=== PATIENT | female | born 1965 | race Caucasian/White ===

== ENCOUNTER → 2019-04-18 13:13 | Outpatient (BNVA) | payer MEDICARE, SELFPAY | PROVIDERS: Family Provider Nurse Practitioner Family; PCP Nurse Practitioner Family; Visit Provider Internal Medicine Rheumatology | DX: M05.79 Rheumatoid arthritis with rheumatoid factor of multiple sites without organ or systems involvement (principal); Z79.899 Other long term (current) drug therapy; M79.7 Fibromyalgia; M81.0 Age-related osteoporosis without current pathological fracture; F32.9 Major depressive disorder, single episode, unspecified; Z79.52 Long term (current) use of systemic steroids | CPT/HCPCS: 36415; 82565; 84460; 85025; 85651; 86140; 99213 ==

== ENCOUNTER → 2019-04-18 14:23 | Outpatient (BNVA) | payer MEDICARE, SELFPAY | PROVIDERS: Family Provider Nurse Practitioner Family; PCP Nurse Practitioner Family; Visit Provider Internal Medicine Rheumatology | DX: M05.79 Rheumatoid arthritis with rheumatoid factor of multiple sites without organ or systems involvement (principal); F32.9 Major depressive disorder, single episode, unspecified; Z79.899 Other long term (current) drug therapy; M79.7 Fibromyalgia; M81.0 Age-related osteoporosis without current pathological fracture | CPT/HCPCS: 85025 ==

== ENCOUNTER → 2019-06-19 11:44 | Outpatient (BNVA) | payer MEDICARE, SELFPAY | PROVIDERS: Family Provider Nurse Practitioner Family; PCP Nurse Practitioner Family; Visit Provider Internal Medicine Rheumatology | DX: M05.79 Rheumatoid arthritis with rheumatoid factor of multiple sites without organ or systems involvement (principal); Z79.899 Other long term (current) drug therapy; Z11.1 Encounter for screening for respiratory tuberculosis | CPT/HCPCS: 36415; 80076; 82565; 85025; 85651; 86140; 86480 ==

== ENCOUNTER → 2019-06-19 12:11 | Outpatient (BNVA) | payer MEDICARE, SELFPAY | PROVIDERS: Family Provider Nurse Practitioner Family; PCP Nurse Practitioner Family; Visit Provider Internal Medicine Rheumatology | DX: M05.79 Rheumatoid arthritis with rheumatoid factor of multiple sites without organ or systems involvement (principal); Z79.899 Other long term (current) drug therapy | CPT/HCPCS: 85025 ==

== ENCOUNTER → 2019-12-24 11:42 | Outpatient (BNVA) | payer MEDICARE, SELFPAY | PROVIDERS: Family Provider Nurse Practitioner Family; PCP Nurse Practitioner Family; Visit Provider Internal Medicine Rheumatology | DX: M05.79 Rheumatoid arthritis with rheumatoid factor of multiple sites without organ or systems involvement (principal); Z79.899 Other long term (current) drug therapy; Z11.59 Encounter for screening for other viral diseases; M81.0 Age-related osteoporosis without current pathological fracture; M79.7 Fibromyalgia; I10 Essential (primary) hypertension; F17.210 Nicotine dependence, cigarettes, uncomplicated; Z79.52 Long term (current) use of systemic steroids | CPT/HCPCS: 36415; 80076; 82565; 85025; 85651; 86140; 86704; 99214 ==

== ENCOUNTER → 2020-01-03 15:07 | Outpatient (BNVA) | payer MEDICARE, SELFPAY | PROVIDERS: Family Provider Nurse Practitioner Family; PCP Nurse Practitioner Family; Visit Provider Internal Medicine Rheumatology | DX: M81.0 Age-related osteoporosis without current pathological fracture (principal); Z79.899 Other long term (current) drug therapy; M05.79 Rheumatoid arthritis with rheumatoid factor of multiple sites without organ or systems involvement | CPT/HCPCS: 82310 ==

== ENCOUNTER → 2020-04-02 15:46 | Outpatient (BNVA) | payer MEDICARE, SELFPAY | PROVIDERS: Family Provider Nurse Practitioner Family; PCP Family Medicine; Visit Provider Internal Medicine Rheumatology | DX: M05.79 Rheumatoid arthritis with rheumatoid factor of multiple sites without organ or systems involvement (principal); M81.0 Age-related osteoporosis without current pathological fracture; Z87.310 Personal history of (healed) osteoporosis fracture; Z79.899 Other long term (current) drug therapy; Z79.52 Long term (current) use of systemic steroids; M79.7 Fibromyalgia; I10 Essential (primary) hypertension; F17.210 Nicotine dependence, cigarettes, uncomplicated | CPT/HCPCS: 36415; 80076; 82565; 85025; 85651; 86140; 99214 ==

== ENCOUNTER → 2021-01-12 10:17 | Outpatient (BNVA) | payer MEDICARE, SELFPAY | PROVIDERS: Family Provider Nurse Practitioner Family; PCP Family Medicine; Visit Provider Internal Medicine Rheumatology | DX: M05.79 Rheumatoid arthritis with rheumatoid factor of multiple sites without organ or systems involvement (principal); M81.0 Age-related osteoporosis without current pathological fracture; Z87.310 Personal history of (healed) osteoporosis fracture; M25.562 Pain in left knee; M79.7 Fibromyalgia; Z79.899 Other long term (current) drug therapy; Z79.52 Long term (current) use of systemic steroids; I10 Essential (primary) hypertension; Z71.89 Other specified counseling; F17.200 Nicotine dependence, unspecified, uncomplicated | CPT/HCPCS: 20610; 80500; 87070; 87075; 87205; 89050; 99214 ==

== ENCOUNTER 2021-01-21 06:39 | Outpatient (CLI) | payer MEDICARE, SELFPAY ==
[2021-01-21 07:14] LABS: Basophils % 0.4 %; Eosinophils # 0.2 10^3/uL (0.0-0.8); Eosinophils % 1.7 %; Hematocrit 35.9 % (37.0-47.0); Lymphocytes # 2.7 10^3/uL (0.8-4.8); Lymphocytes % 25.3 %; Mean Corpuscular HGB Conc 30.6 g/dL (30.0-36.0); Mean Corpuscular Hemoglobin 28.1 pg (28.0-34.0); Mean Corpuscular Volume 91.6 fl (81-99); Mean Platelet Volume 9.5 fL (7.4-10.4); Monocytes # 0.8 10^3/uL (0.2-0.9); Monocytes % 7.3 %; Neutrophils # 6.77 10^3/uL (1.8-7.7); Neutrophils % 64.5 %; Nucleated Red Blood Cells % 0 %; Platelet Count 374 10^3/cmm (130-400); Red Blood Count 3.92 10^6/uL (4.1-5.3); Red Cell Distribution Width 13.8 % (12.1-15.1); White Blood Count 10.5 10^3/uL (4.0-10.0)
[2021-01-21 07:24] LABS: Alanine Aminotransferase 15 U/L (0-33); Albumin Level 3.7 g/dL (3.5-5.2); Alkaline Phosphatase 102 IU/L (35-105); Aspartate Amino Transferase 14 U/L (0-32); C Reactive Protein 5.6 mg/L (0.0-4.9); Calcium 8.6 mg/dL (8.5-10.5); Glomerular Filtration Rate 128.1 mL/min (90-130); Total Bilirubin 0.2 mg/dL (0.15-1.2); Total Protein 6.7 g/dL (6.6-8.7)
[2021-01-21 07:40] LABS: 25 Hydroxy Vitamin D 23 ng/mL (30-100)
== END 2021-01-21 06:40 | disposition home or self-care (01) ==
LOC: LAB 06:47
PROVIDERS: PCP Family Medicine; Visit Provider Internal Medicine Rheumatology
DX: M81.0 Age-related osteoporosis without current pathological fracture (principal); Z79.899 Other long term (current) drug therapy; M05.79 Rheumatoid arthritis with rheumatoid factor of multiple sites without organ or systems involvement
CPT/HCPCS: 80076; 82306; 82310; 82565; 85025; 86140

== ENCOUNTER → 2021-02-02 14:30 | Outpatient (BNVA) | payer MEDICARE, SELFPAY | PROVIDERS: PCP Family Medicine; Visit Provider Nurse Practitioner Family | DX: I10 Essential (primary) hypertension (principal) | CPT/HCPCS: 81000 ==

== ENCOUNTER → 2021-07-09 14:45 | Outpatient (BNVA) | payer MEDICARE, SELFPAY | PROVIDERS: PCP Family Medicine; Visit Provider Internal Medicine Rheumatology | DX: M05.79 Rheumatoid arthritis with rheumatoid factor of multiple sites without organ or systems involvement (principal); M79.7 Fibromyalgia; M81.0 Age-related osteoporosis without current pathological fracture; I10 Essential (primary) hypertension; Z79.899 Other long term (current) drug therapy; Z79.52 Long term (current) use of systemic steroids; Z71.89 Other specified counseling; F17.200 Nicotine dependence, unspecified, uncomplicated | CPT/HCPCS: 99214 ==

== ENCOUNTER → 2021-08-25 14:39 | Outpatient (BNVA) | payer MEDICARE, SELFPAY | PROVIDERS: PCP Family Medicine; Visit Provider Nurse Practitioner Family | DX: M79.642 Pain in left hand (principal); S61.412A Laceration without foreign body of left hand, initial encounter; M25.532 Pain in left wrist; X58.XXXA Exposure to other specified factors, initial encounter | CPT/HCPCS: 73110; 73130 ==

== ENCOUNTER → 2021-08-26 13:08 | Outpatient (BNVA) | payer MEDICARE, SELFPAY | PROVIDERS: PCP Family Medicine; Visit Provider Nurse Practitioner Family | DX: R19.7 Diarrhea, unspecified (principal); K92.1 Melena; M79.642 Pain in left hand; S61.412A Laceration without foreign body of left hand, initial encounter; K52.9 Noninfective gastroenteritis and colitis, unspecified; I10 Essential (primary) hypertension; L08.9 Local infection of the skin and subcutaneous tissue, unspecified; Z12.11 Encounter for screening for malignant neoplasm of colon; M25.532 Pain in left wrist | CPT/HCPCS: 80053 ==

== ENCOUNTER → 2021-09-15 10:52 | Outpatient (BNVA) | payer MEDICARE, SELFPAY | PROVIDERS: PCP Family Medicine; Visit Provider Surgery | DX: R19.7 Diarrhea, unspecified (principal); R10.9 Unspecified abdominal pain; K21.9 Gastro-esophageal reflux disease without esophagitis | CPT/HCPCS: 99203 ==

== ENCOUNTER → 2021-09-25 09:05 | Outpatient (BNVA) | payer MEDICARE, SELFPAY | PROVIDERS: PCP Family Medicine; Visit Provider Nurse Practitioner Family | DX: R19.7 Diarrhea, unspecified (principal); R10.9 Unspecified abdominal pain; K21.9 Gastro-esophageal reflux disease without esophagitis; R53.83 Other fatigue; J02.9 Acute pharyngitis, unspecified; W57.XXXA Bitten or stung by nonvenomous insect and other nonvenomous arthropods, initial encounter; R55 Syncope and collapse; R00.2 Palpitations; R94.31 Abnormal electrocardiogram [ECG] [EKG]; M79.7 Fibromyalgia; R11.0 Nausea; M05.79 Rheumatoid arthritis with rheumatoid factor of multiple sites without organ or systems involvement | CPT/HCPCS: 80053; 86618; 86666; 86757 ==

== ENCOUNTER 2021-10-02 08:57 | Day surgery (SDC) | payer MEDICARE, SELFPAY ==
[2021-10-01 10:35] VITALS: BMI 19.6
[2021-10-02] MEDS: sodium chloride 0.9% 1,000 ML 30 ML IV (09:15)
[2021-10-02 09:16] VITALS: BP 160/85; PULSE 78; RESP 18; TEMP 36.8; O2SAT 100
--- NOTE | 2021-10-02 09:36 | ANES.PREANE2 ---
Pre-Anesthetic Assessment Height/Weight: Height 1.65 m Weight 53.524 kg Temp Pulse Resp BP Pulse Ox 98.3 F 78 18 160/85 100 10/02/21 09:16 10/02/21 09:16 10/02/21 09:16 10/02/21 09:16 10/02/21 09:16 Preop Diagnosis: none Operation Date: 10/02/21 10:30 Proposed Procedures p EGD and colonoscopy [id number],R19.7,R10.9,K21.9(Not Applicable) - Marc Estrella DO s Colonoscopy(Not Applicable) - Marc Esterlla DO Familial anesthetic complications: none Was Beta Tate taken within 24 hours: N/A Was Clonidine taken within 24 hours: N/A Last intake: Intake Last Liquid Date 10/01/21 Last Liquid Time 23:45 Last Solid Date 09/30/21 Last Solid Time 20:00 Social Tobacco and No alcohol Exam alert, oriented x 3, clear to auscultation bilaterally and regular rate & rhythm Airway Submandibular: within normal limits Cervical ROM: Other (Limited ROM) Mallampati: Class II Comments: Comments: Poor dentition Missing some teeth CV/HEM Atrial Fibrillation (per patient new dx of afib ), Anemia, Arrythmia (Palpitations ) and Hypertension Near syncope Tick bite GI Gastroesophageal Reflux Disease K 2.9 Metabolic None reported Musc/skel Rheumatoid Arthritis Neuropsych None reported Anesthetic Plan ASA status: 2 Anesthesia: Anesthesia Evaluation and MAC Other: I discussed with the patient risks, goals, and benefits of MAC and general anesthesia. We discussed spectrum of MAC anesthesia including conversion to general as well as possibility of recall of intraoperative stimuli including discomfort/pain. Patient agrees to proceed with MAC. Risk of > 500 ml blood loss (7ml/kg in children): No Medications/Allergies Home Medications Medication Instructions Recorded Confirmed Last Taken Type Acomadative orthotics, bilateral #1 ea 08/15/19 10/02/21 10/01/21 Rx Metatarsal pads, bilateral feet #1 ea 08/15/19 10/02/21 10/01/21 Rx diclofenac sodium 1 % topical gel 2 gm TOPICAL QID #100 gm 12/24/19 10/02/21 10/01/21 Rx folic acid 1 mg tablet 1 mg PO DAILY #90 tab 01/12/21 10/02/21 10/01/21 Rx methotrexate sodium 2.5 mg tablet See Rx Instructions PO .week #40 06/08/21 10/02/21 10/01/21 Rx tab duloxetine 30 mg capsule,delayed 30 mg PO DAILY #90 cap 07/09/21 10/02/21 10/01/21 Rx release duloxetine 60 mg capsule,delayed 60 mg PO DAILY #90 cap 07/09/21 10/02/21 10/01/21 Rx release pantoprazole 40 mg tablet,delayed 40 mg PO DAILY #90 tab 07/09/21 10/02/21 10/01/21 Rx release prednisone 5 mg tablet 5 mg PO DAILY #90 tab 07/09/21 10/02/21 10/01/21 Rx upadacitinib 15 mg tablet,extended 15 mg PO DAILY #30 tab 07/09/21 10/02/21 10/01/21 Rx release 24 hr (Rinvoq) amlodipine 10 mg tablet 10 mg PO DAILY 90 Days #90 tab 08/25/21 10/02/21 10/01/21 Rx telmisartan 80 mg tablet (Micardis) 80 mg PO DAILY 90 Days #90 tab 08/25/21 10/02/21 10/01/21 Rx doxycycline hyclate 100 mg capsule 100 mg PO BID 10 Days #20 cap 09/24/21 10/02/21 10/01/21 Rx lidocaine HCl 2 % mucosal solution 1 applic MUCOUS MEMBRANE QID PRN 09/24/21 10/02/21 10/01/21 Rx (Lidocaine Viscous) #100 ml ondansetron HCl 4 mg tablet 4 mg PO Q6H PRN #90 tab 09/24/21 10/02/21 10/01/21 Rx sucralfate 1 gram tablet (Carafate) 1 g PO BID 30 Days #60 tab 09/24/21 10/02/21 10/01/21 Rx Allergies Allergy/AdvReac Type Severity Reaction Status Date / Time No Known Allergies Allergy Verified 09/24/21 14:41 Current Medications Generic Name Dose Route Start Last Admin Trade Name Freq PRN Reason Stop Dose Admin Sodium Chloride 1,000 mls @ 30 mls/hr 10/02/21 09:00 10/02/21 09:15 Sodium Chloride 0.9% IV 10/03/21 08:59 30 mls/hr .Q24H JASS Administration PFSH Anesthesia Medical History FHx: total knee replacement 08/2011 High risk medication use HTN (hypertension) Immunization counseling Surgical History H/O wrist surgery RIGHT H/O: hysterectomy 2006 History of back surgery 12/2017 Social History Smoking and tobacco status: never smoked Alcohol intake: never Lives independently: Yes Marital status: Single Current occupational status: retired and disabled History of recent travel: No Data Anesthesia Cardiac Studies: No Data to Display
--- NOTE | 2021-10-02 11:08 | W.PM.OPSUD ---
Surgery/Procedure H&P Update DATE OF PROCEDURE: October 02, 2021 DATE H&P PERFORMED: 09/15/21 CHANGES TO PREVIOUS DOCUMENTATION: none PREOP DIAGNOSIS: none PLANNED PROCEDURE: Operation Date: 10/02/21 10:30 Proposed Procedures p EGD and colonoscopy [id number],R19.7,R10.9,K21.9(Not Applicable) - DO olimpia Brody Colonoscopy(Not Applicable) - Marc Estrella DO
[2021-10-02 11:32] VITALS: BP 138/74; PULSE 68; RESP 18; TEMP 36.3; O2SAT 100
[2021-10-02 11:53] VITALS: BP 133/75; PULSE 72; RESP 18; O2SAT 98
--- NOTE | 2021-10-02 14:41 | ANE.PACU2 ---
Inpatient post-anesthesia follow up: Airway intact: Yes Vital signs: Temperature 97.3 F Pulse Rate 72 Respiratory Rate 18 Blood Pressure 133/75 Pulse Oximetry 98 Oxygen Delivery Me thod Room Air Oxygen Flow Rate 4 Fraction of Inspir ed Oxygen Hydration adequate: Yes Nausea and vomiting: No Pain level: 1 Mental status: Baseline
== END 2021-10-02 12:10 | disposition home or self-care (01) ==
PROVIDERS: PCP Family Medicine; Visit Provider Surgery
PROC: 0DJ08ZZ Inspection of Upper Intestinal Tract, Via Natural or Artificial Opening Endoscopic (ICD-10-PCS; CPT 43235; principal; 2021-10-02 10:30)
PROC: 0DJD8ZZ Inspection of Lower Intestinal Tract, Via Natural or Artificial Opening Endoscopic (ICD-10-PCS; CPT 45330; 2021-10-02 10:30)
DX: R19.7 Diarrhea, unspecified (principal); R10.9 Unspecified abdominal pain; K21.9 Gastro-esophageal reflux disease without esophagitis; I48.91 Unspecified atrial fibrillation; I10 Essential (primary) hypertension; M06.9 Rheumatoid arthritis, unspecified
CPT/HCPCS: 43235; 45330; J2704; J7030

== ENCOUNTER 2021-10-09 17:03 | Emergency (ER) | payer MEDICARE, SELFPAY ==
[2021-10-09] VITALS (7 sets, daily range): BP systolic 146–162; BP diastolic 71–94; PULSE 63–86; RESP 14–20; TEMP 36.7–36.8; O2SAT 96–100; BMI 19.6
--- NOTE | 2021-10-09 19:45 | ED_ITS ---
HPI - General Adult General: Chief complaint: General Medical Stated complaint: abnormal labs Time Seen by Provider: 10/09/21 19:25 Source: patient Mode of arrival: ambulatory Limitations: no limitations History of Present Illness: 56-year-old female who states that she been having some chronic anemia for months states she is having black tarry stool 3 to 4 weeks ago states she just had an EGD and colonoscopy on Tuesday they did not find any bleeding ulcers. She states that she had her hemoglobin rechecked today and it was below 7 and her PCP wanted her to get a transfusion states she been having some abdominal pain as well she has not had any more blood in her stools her stools been brown. Associated symptoms: Deny chest pain, dyspnea, headache(s) or rash Review of Systems Const: Denies: fever(s), chills, body aches or change in appetite Eyes: Denies: blurry vision or eye discomfort ENMT: Denies: throat pain or dental pain Card: Denies: chest pain Resp: Denies: dyspnea GI: Reports: abdominal pain and melena : Denies: dysuria Musc: Denies: neck pain or back pain Skin/Breast: Denies: rash Neuro: Denies: headache(s) Psych: Denies: depression Michele/Lymph: Denies: easy bruising All/Imm: Denies: urticaria PFSH ED PFSH: Medical History (Updated 10/09/21 @ 20:43 by Thalia Mckee MD) FHx: total knee replacement 08/2011 High risk medication use HTN (hypertension) Immunization counseling Surgical History H/O wrist surgery RIGHT H/O: hysterectomy 2006 History of back surgery 12/2017 Social History Smoking and tobacco status: current some day smoker Alcohol intake: never Lives independently: Yes Marital status: Single Current occupational status: retired and disabled History of recent travel: No Physical Exam Const: COMMON NORMALS: no acute distress, patient oriented x3 and healthy appearing HENMT: COMMON NORMALS: normocephalic and atraumatic HEAD & SCALP: normocephalic and atraumatic Eye: COMMON NORMALS: Equal, round and reactive pupils present and EOMs intact bilaterally PUPIL: Yes Equal, round and reactive pupils present Neck/C-Spine: COMMON NORMALS: full ROM and supple Chest: COMMONS NORMALS: normal inspection of the chest and normal palpation of entire chest wall Resp: COMMON NORMALS: normal respiratory effort, No retractions, No use of accessory muscles and clear to auscultation bilaterally AUSCULTATION: clear to auscultation bilaterally Cardio: COMMON NORMALS: regular rate, regular rhythm and No murmurs present (Cardio) RATE: regular rate RHYTHM: regular rhythm GI: COMMON NORMALS: Normal to inspection, nondistended, normoactive bowel sounds present, Soft to palpation, non-tender and no masses PALPATION: Yes Soft to palpation RECTAL EXAM: stool normal and No heme positive stool Extremity: COMMON NORMALS: normal to inspection and full ROM Neuro: COMMON NORMALS: patient oriented x3, moves all extremities and no focal motor deficits Psych: COMMON NORMALS: mental status grossly normal, Normal thought process present and cooperative THOUGHT PROCESS: Normal thought process present Skin: COMMON NORMALS: no rashes or lesions noted and no wounds GENERAL SKIN EXAM: no rashes or lesions noted Course Vital Signs: Vital signs: Vital Signs Temperature 98.1 F 10/09/21 21:23 Pulse Rate 73 10/09/21 21:23 Respiratory Rate 17 10/09/21 21:23 Blood Pressure 150/85 10/09/21 21:23 Pulse Oximetry 97 10/09/21 21:23 [facility] - General Adult Medical Decision Making Patient presents here with anemia was sent here patient is given a transfusion here she is likely became anemic over some time her vital signs here are normal she had dark stools weeks ago has had a normal EGD her rectal exam here today is normal CT abdomen is normal she stable for discharge is to follow back up with Dr. Estrella and return if worsening. Lab Data : 10/09/21 19:32 10/09/21 19:32 Radiology Impressions Abdomen/Pelvis CT 10/09/21 19:48 IMPRESSION: 1. Fluid within the small bowel without evidence of bowel wall thickening. This may reflect viral gastroenteritis in the appropriate clinical situation. 2. Scattered diverticula in the sigmoid colon. No evidence for diverticulitis. 3. Incidental/nonacute findings are listed in the report. Laboratory Results WBC 10.3 10^3/uL (4.0-10.0) H 10/09/21 19:32 RBC 3.28 10^6/uL (4.1-5.3) L 10/09/21: Hgb 6.9 g/dL (11.5-15.3) L 10/09/21: Hct 25.0 % (37.0-47.0) L 10/09/21: MCV 76.2 fl (81-99) L 10/09/21: MCH 21.0 pg (28.0-34.0) L 10/09/21: MCHC 27.6 g/dL (30.0-36.0) L 10/09/21: RDW 18.0 % (12.1-15.1) H 10/09/21: Plt Count 340 10^3/cmm (130-400) 10/09/21: MPV 9.8 fL (7.4-10.4) 10/09/21: Neut % (Auto) 54.9 % 10/09/21: Lymph % (Auto) 34.9 % 10/09/21: Rich % (Auto) 6.8 % 10/09/21: Eos % (Auto) 2.5 % 10/09/21: Baso % (Auto) 0.5 % 10/09/21: Neut # (Auto) 5.66 10^3/uL (1.8-7.7) 10/09/21: Lymph # (Auto) 3.6 10^3/uL (0.8-4.8) 10/09/21: Rich # (Auto) 0.7 10^3/uL (0.2-0.9) 10/09/21: Eos # (Auto) 0.3 10^3/uL (0.0-0.8) 10/09/21: Baso # (Auto) 0.1 10^3/uL (0.0-0.1) 10/09/21: Nucleated RBC % (auto) 0 % 10/09/21: Nucleated RBCs # 0.0 /100WBC 10/09/21: Sodium 137 mmol/L (136-145) 07/22/22 19:32 Potassium 3.0 mmol/L (3.5-5.1) L 10/09/21 19:32 Chloride 101 mmol/L (98-107) 10/09/21 19:32 Carbon Dioxide 24 mmol/L (22-29) 10/09/21 19:32 Anion Gap 15.0 (5-19) 10/09/21 19:32 BUN 26 mg/dL (6-20) H 10/09/21 19:32 Creatinine 0.7 mg/dL (0.5-0.9) 10/09/21 19:32 GFR Calculation 86.6 mL/min (90-130) L 10/09/21 19:32 Glucose 94 mg/dL (65-115) 10/09/21 19:32 Calculated Osmolality 289 mOsm/kg (285-295) 10/09/21 19:32 Calcium 8.7 mg/dL (8.5-10.5) 10/09/21 19:32 Total Bilirubin 0.2 mg/dL (0.15-1.2) 10/09/21 19:32 AST 12 U/L (0-32) 10/09/21 19:32 ALT 12 U/L (0-33) 10/09/21 19:32 Alkaline Phosphatase 91 IU/L (35-105) 10/09/21 19:32 Total Protein 6.8 g/dL (6.6-8.7) 10/09/21 19:32 Albumin 3.7 g/dL (3.5-5.2) 10/09/21 19:32 Globulin 3.1 g/dL (1.3-4.6) 10/09/21 19:32 Blood Type O Positive 10/09/21 19:32 Rho(D) Type Positive 10/09/21 19:32 Antibody Screen Negative 10/09/21 19:32 Crossmatch See Detail 10/09/21 19:32 Discharge Plan Discharge Patient Disposition: Home Clinical Impression: Anemia Condition: Stable Prescriptions: No Action diclofenac sodium 1 % gel 2 gm TOPICAL QID Qty: 100 2RF Rx Instructions: apply to affected area as needed (DME) Metatarsal pads, bilateral feet See Rx Instructions .Route .MEDSUPPLY Qty: 1 0RF Rx Instructions: As directed (DME) Acomadative orthotics, bilateral See Rx Instructions .Route .MEDSUPPLY Qty: 1 0RF Rx Instructions: As directed lidocaine (PF) 10 mg/mL (1 %) solution 10 mg SUBCUT ONCE Qty: 10 0RF folic acid 1 mg tablet 1 mg PO DAILY Qty: 90 3RF duloxetine 30 mg capsule,delayed release(DR/EC) 30 mg PO DAILY Qty: 90 1RF Rx Instructions: a 30mg and 60mg to be taken daily to equal 90mg daily duloxetine 60 mg capsule,delayed release(DR/EC) 60 mg PO DAILY Qty: 90 1RF Rx Instructions: a 30mg and 60mg to be taken daily to equal 90mg daily pantoprazole 40 mg tablet,delayed release (DR/EC) 40 mg PO DAILY Qty: 90 1RF prednisone 5 mg tablet 5 mg PO DAILY Qty: 90 1RF Rinvoq 15 mg tablet extended release 24 hr 15 mg PO DAILY Qty: 30 3RF amlodipine 10 mg tablet 10 mg PO DAILY 90 Days Qty: 90 1RF telmisartan [Micardis] 80 mg tablet 80 mg PO DAILY 90 Days Qty: 90 1RF doxycycline hyclate 100 mg capsule 100 mg PO BID 10 Days Qty: 20 0RF sucralfate [Carafate] 1 gram tablet 1 g PO BID 30 Days Qty: 60 0RF lidocaine HCl [Lidocaine Viscous] 2 % solution 1 applic mucous membrane QID PRN (Reason: pain) Qty: 100 0RF ondansetron HCl 4 mg tablet 4 mg PO Q6H PRN (Reason: nausea and vomiting) Qty: 90 0RF ferrous sulfate [Iron (ferrous sulfate)] 325 mg (65 mg iron) tablet 325 mg PO BID 90 Days Qty: 180 1RF Geritol Complete 16 mg iron- 0.38 mg tablet 1 tab PO .QD 90 Days Qty: 90 1RF methotrexate sodium 2.5 mg tablet See Rx Instructions PO .week Qty: 40 4RF Rx Instructions: 8 tabs of 2.5 mg PO once a week ( take 4 tabs in the AM and 4 tabs in the PM on the same day) Discharge Orders: Discharge ED (Routine); Ordered 10/09/21 Ordered By: Thalia Mckee Referrals: Janice Gunderson MD [Primary Care Provider] - 1-3 days Discharge Diet: Advance as tolerated Discharge Activity: Resume usual activity Patient Instructions: Anemia (ED) Coding Level of Care Code ED Supervisor [facility] for Chg Fwd Exam Comprehensive
[2021-10-09 19:46] LABS: Basophils # 0.1 10^3/uL (0.0-0.1); Basophils % 0.5 %; Eosinophils # 0.3 10^3/uL (0.0-0.8); Eosinophils % 2.5 %; Hemoglobin 6.9 g/dL (11.5-15.3); Lymphocytes # 3.6 10^3/uL (0.8-4.8); Lymphocytes % 34.9 %; Mean Corpuscular HGB Conc 27.6 g/dL (30.0-36.0); Mean Corpuscular Volume 76.2 fl (81-99); Mean Platelet Volume 9.8 fL (7.4-10.4); Monocytes # 0.7 10^3/uL (0.2-0.9); Monocytes % 6.8 %; Neutrophils # 5.66 10^3/uL (1.8-7.7); Neutrophils % 54.9 %; Nucleated Red Blood Cells % 0 %; Platelet Count 340 10^3/cmm (130-400); Red Blood Count 3.28 10^6/uL (4.1-5.3); White Blood Count 10.3 10^3/uL (4.0-10.0)
--- NOTE | 2021-10-09 19:48 | CTR_ITS ---
PROCEDURE INFORMATION: Exam: CT Abdomen And Pelvis Without Contrast Exam date and time: 10/09/2021 8:01 PM Age: 56 years old Clinical indication: Abdominal pain; Generalized; Patient HX: C/O diffuse abd pain with tarry stools. Low h&h per pcp. TECHNIQUE: Imaging protocol: Computed tomography of the abdomen and pelvis without contrast. Sagittal and coronal reformatted images were created and reviewed. Radiation optimization: All CT scans at this facility use at least one of these dose optimization techniques: automated exposure control; mA and/or kV adjustment per patient size (includes targeted exams where dose is matched to clinical indication); or iterative reconstruction. COMPARISON: US gall bladder [id number] 09/29/2017 9:01 AM RADIATION DOSE METRICS: Total DLP (mGy-cm): 797.48 FINDINGS: Limitations: Evaluation of solid organs and vasculature is limited without intravenous contrast. Lungs: Visualized lungs are clear. Pleural spaces: No pleural effusion. Heart: Visualized portions of the heart are mildly enlarged. Mild atherosclerotic calcification in the visualized coronary arteries. Liver: The liver is unremarkable. Gallbladder and bile ducts: The gallbladder is unremarkable. No biliary ductal dilatation. Pancreas: The pancreas is unremarkable. No pancreatic ductal dilatation. Spleen: Multiple calcified granulomas in the spleen. Adrenal glands: The right and left adrenal glands are unremarkable. Kidneys and ureters: The right and left kidneys are unremarkable. The right and left ureters are unremarkable. Stomach and bowel: Scattered diverticula in the sigmoid colon. No evidence for diverticulitis. Fluid within the small bowel without evidence of bowel wall thickening. Appendix: The appendix is visualized and is unremarkable. No findings to suggest acute appendicitis. Intraperitoneal space: No free intraperitoneal air. No ascites. No loculated fluid collections to suggest an abscess. Vasculature: Mild atherosclerotic changes in the visualized arteries. No evidence for aortic aneurysm. Lymph nodes: No lymphadenopathy. Urinary bladder: The bladder is unremarkable. Reproductive: Patient has had a previous hysterectomy. The ovaries are not definitely visualized, not an expected in a postmenopausal female. This may be due to ovarian atrophy. Alternatively, the patient may have had a previous bilateral oophorectomy. Bones/joints: Bones are diffusely osteopenic. Old, compression deformities varying severity at T9, T11, and all lumbar spine levels. Prior kyphoplasty procedures at T9 and L1. Mild spinal canal stenosis at all visualized spinal levels. Multilevel foraminal stenosis of varying severity in the visualized spine. Soft tissues: No acute abnormality in the extra-abdominal soft tissues. CT/CT abdomen pelvis wo con [id number] IMPRESSION: 1. Fluid within the small bowel without evidence of bowel wall thickening. This may reflect viral gastroenteritis in the appropriate clinical situation. 2. Scattered diverticula in the sigmoid colon. No evidence for diverticulitis. 3. Incidental/nonacute findings are listed in the report.
[2021-10-09] MEDS: morphine 4 mg/mL SDV 1 mL IVP (20:11)
[2021-10-09] MEDS: ondansetron 2 mg/ML SDV 2 mL 4 MG IVP (20:11)
[2021-10-09 20:14] LABS: Alanine Aminotransferase 12 U/L (0-33); Albumin Level 3.7 g/dL (3.5-5.2); Alkaline Phosphatase 91 IU/L (35-105); Aspartate Amino Transferase 12 U/L (0-32); Blood Urea Nitrogen 26 mg/dL (6-20); Calcium 8.7 mg/dL (8.5-10.5); Carbon Dioxide 24 mmol/L (22-29); Chloride 101 mmol/L (98-107); Globulin 3.1 g/dL (1.3-4.6); Glomerular Filtration Rate 86.6 mL/min (90-130); Glucose 94 mg/dL (65-115); Osmolality Calculated 289 mOsm/kg (285-295); Sodium 137 mmol/L (136-145); Total Bilirubin 0.2 mg/dL (0.15-1.2); Total Protein 6.8 g/dL (6.6-8.7)
== END 2021-10-09 23:15 | disposition home or self-care (01) ==
PROVIDERS: Emergency Provider Emergency Medicine; PCP Family Medicine
DX: D64.9 Anemia, unspecified (principal); I10 Essential (primary) hypertension; F17.210 Nicotine dependence, cigarettes, uncomplicated
CPT/HCPCS: 36415; 36430; 74176; 80053; 80074; 83550; 85025; 86850; 86900; 86920; 96374; 96375; 99285; J2270; J2405; P9016

== ENCOUNTER → 2021-11-30 14:40 | Outpatient (BNVA) | payer MEDICARE, SELFPAY | PROVIDERS: PCP Nurse Practitioner Family; Visit Provider Internal Medicine Cardiovascular Disease | DX: R00.2 Palpitations (principal); R94.31 Abnormal electrocardiogram [ECG] [EKG]; R06.02 Shortness of breath; R55 Syncope and collapse; I10 Essential (primary) hypertension; K21.9 Gastro-esophageal reflux disease without esophagitis; F17.200 Nicotine dependence, unspecified, uncomplicated | CPT/HCPCS: 80048; 83735; 85025; 99204 ==

== ENCOUNTER 2021-12-18 05:49 | Emergency (ER) | payer MEDICARE, SELFPAY ==
--- NOTE | 2021-12-18 05:56 | ECG_ITS ---
[facility] Test Date: 2021-12-18 Pat Name: Navid Solano Department: Room: Gender: Female [employer]pper [employer]ters: : 1965 Requested By: Fitz Veloz Order Number: [id number] Marcy MD: Mandy Castanon M.D. Measurements Intervals [place] Rate: 87 P: 25 NV: 121 QRS: 26 QRSD: 83 T: 18 QT: 358 QTc: 433 Interpretive Statements Possible SINUS RHYTHM Compared to ECG 03/07/2019 05:38:16 No significant changes Electronically Signed On 12-18-2021 19:06:32 CDT by Mandy Castanon M.D. [email or web address]
--- NOTE | 2021-12-18 05:57 | XRR_ITS ---
PROCEDURE INFORMATION: Exam: XR Chest Exam date and time: 12/18/2021 6:13 AM Age: 56 years old Clinical indication: Injury or trauma; Fall; Blunt trauma (contusions or hematomas); Additional info: Chest pain TECHNIQUE: Imaging protocol: Radiologic exam of the chest. Views: 1 view. COMPARISON: CT Chest w IV contrast* [id number] 03/07/2019 6:46 AM FINDINGS: Lungs: Mild elevation of the left hemidiaphragm. Focal opacity noted in the right upper lobe which may represent developing infiltrate. No consolidation. Pleural spaces: Unremarkable. No pleural effusion. No pneumothorax. Heart/Mediastinum: No cardiomegaly. Bones/joints: No acute fracture. XR/XR chest 1V portable [id number] IMPRESSION: Focal opacity noted in the right upper lobe which may represent developing infiltrate. Follow-up to resolution.
--- NOTE | 2021-12-18 05:58 | W.ED.CHESTPA ---
HPI - Chest Pain General: Chief Complaint: Chest Pain Stated Complaint: CP Time Seen by Provider: 12/18/21 05:51 Source: patient Mode of arrival: ambulatory History of Present Illness: 56-year-old female presents emergency room complaining of chest pain x1 day. Approximately 24 hours ago she was trying to close a heavy gate for a pasture she lifted it and felt a popping painful sensation in her chest that is continued to be painful since then. Patient has a history of coronary artery disease and was having intermittent episodes of chest pain prior to this as well. She is seen cardiology for it and is being managed there. She also mentions that she recently had an episode anemia anemia and required blood transfusion but there was no definitive finding on the source of blood loss. EGD and colonoscopy done earlier this year after the episode anemia or negative. Also noted reviewing her chart she had some hypokalemia in the past as well. Prior to this episode yesterday morning she was feeling relatively fine at her normal baseline health. Chest pain she is experiencing now is completely different from what she had been intermittently having prior. MD complaint: chest pain Pertinent past history: coronary artery disease Onset (ago): hour(s) Timing of current episode: episodic Onset: during exertion Pain location: other (Lower sternum) Pain radiation: none Severity: moderate Quality: sharp Relieving factors: rest Exacerbating factors: nothing Associated symptoms: Deny abdominal pain, diaphoresis, dyspnea, fever(s), leg edema, nausea, palpitations, sense of impending doom, syncope or vomiting Treatment prior to arrival: none Review of Systems Const: Denies: fever(s), chills, fatigue, malaise or diaphoresis ENMT: Denies: throat pain, ear or mastoid pain, nasal discharge or nasal congestion Card: Reports: chest pain; Denies: palpitations or syncope Resp: Denies: dyspnea, productive cough, non-productive cough or wheezing GI: Denies: abdominal pain, nausea or vomiting : Denies: flank pain, difficulty voiding, dysuria, urinary frequency or urinary urgency Musc: Denies: neck pain or back pain Skin/Breast: Denies: rash or pruritus PFS ED PFSH: Medical History FHx: total knee replacement 08/2011 High risk medication use History of COVID-19 HTN (hypertension) Immunization counseling Surgical History H/O wrist surgery RIGHT H/O: hysterectomy 2006 History of back surgery 12/2017 Social History Smoking and tobacco status: current every day smoker cigarettes Packs smoked per day: 0.5 Years cigarettes smoked: 36 Alcohol intake: never Lives independently: Yes Marital status: Single Current occupational status: retired and disabled History of recent travel: No Physical Exam Const: COMMON NORMALS: no acute distress GENERAL APPEARANCE: cooperative and comfortable ORIENTATION/CONSCIOUSNESS: Yes awake, Yes oriented to person, Yes oriented to place and Yes oriented to time HENMT: COMMON NORMALS: normocephalic, atraumatic and hearing grossly normal bilaterally HEAD & SCALP: normocephalic and atraumatic Resp: COMMON NORMALS: normal respiratory effort, No retractions and No use of accessory muscles AUSCULTATION: wheezes and diminished lung sounds Cardio: COMMON NORMALS: regular rate, regular rhythm and No murmurs present (Cardio) RATE: regular rate RHYTHM: regular rhythm GI: COMMON NORMALS: Soft to palpation and No hepatosplenomegaly present AUSCULTATION: Yes normoactive bowel sounds PALPATION: Yes Soft to palpation, No Tenderness to palpation present (GI), No Guarding due to palpation present (GI) and Yes No hepatosplenomegaly present Extremity: COMMON NORMALS: normal to inspection, capillary refill normal, no clubbing, cyanosis or edema, no calf tenderness and no pedal edema Neuro: SENSORIUM/ORIENTATION: Yes oriented to person, Yes oriented to place and Yes oriented to time Skin: COMMON NORMALS: no rashes or lesions noted GENERAL SKIN EXAM: no rashes or lesions noted Course Vital Signs: Vital signs: Vital Signs Temperature 98.9 F 12/18/21 06:03 Pulse Rate 91 12/18/21 06:44 Respiratory Rate 16 12/18/21 06:44 Blood Pressure 155/86 12/18/21 06:44 Pulse Oximetry 92 12/18/21 06:44 Oxygen Delivery Me thod 12/18/21 06:44 MDM - Chest Pain Medical Decision Making Labs imaging and EKG reviewed. Pain reproducible with palpation on the anterior chest wall. Discharge patient home with Ultram steroid burst and taper. Follow-up with primary care as needed Lab Data : 12/18/21 06:01 12/18/21 06:01 Laboratory Results WBC 18.8 10^3/uL (4.0-10.0) H 12/18/21 06:01 RBC 4.60 10^6/uL (4.1-5.3) 12/18/21 06:01 Hgb 12.6 g/dL (11.5-15.3) 12/18/21 06:01 Hct 41.2 % (37.0-47.0) 12/18/21 06:01 MCV 89.6 fl (81-99) 12/18/21 06:01 MCH 27.4 pg (28.0-34.0) L 12/18/21 06:01 MCHC 30.6 g/dL (30.0-36.0) 12/18/21 06:01 RDW 19.1 % (12.1-15.1) H 12/18/21 06:01 Plt Count 311 10^3/cmm (130-400) 12/18/21 06:01 MPV 9.5 fL (7.4-10.4) 12/18/21 06:01 Neut % (Auto) 80.0 % 12/18/21 06:01 Lymph % (Auto) 12.7 % 12/18/21 06:01 Hart % (Auto) 6.0 % 12/18/21 06:01 Eos % (Auto) 0.7 % 12/18/21 06:01 Baso % (Auto) 0.3 % 12/18/21 06:01 Neut # (Auto) 15.01 10^3/uL (1.8-7.7) H 12/18/21 06:01 Lymph # (Auto) 2.4 10^3/uL (0.8-4.8) 12/18/21 06:01 Hart # (Auto) 1.1 10^3/uL (0.2-0.9) H 12/18/21 06:01 Eos # (Auto) 0.1 10^3/uL (0.0-0.8) 12/18/21 06:01 Baso # (Auto) 0.1 10^3/uL (0.0-0.1) 12/18/21 06:01 Nucleated RBC % (auto) 0 % 12/18/21 06:01 Nucleated RBCs # 0.0 /100WBC 12/18/21 06:01 Sodium 136 mmol/L (136-145) 12/18/21 06:01 Potassium 3.4 mmol/L (3.5-5.1) L 12/18/21 06:01 Chloride 100 mmol/L (98-107) 12/18/21 06:01 Carbon Dioxide 28 mmol/L (22-29) 12/18/21 06:01 Anion Gap 11.4 (5-19) 12/18/21 06:01 BUN 15 mg/dL (6-20) 12/18/21 06:01 Creatinine 0.6 mg/dL (0.5-0.9) 12/18/21 06:01 GFR Calculation 103.4 mL/min (90-130) 12/18/21 06:01 Glucose 116 mg/dL (65-115) H 12/18/21 06:01 Calculated Osmolality 284 mOsm/kg (285-295) L 12/18/21 06:01 Calcium 9.0 mg/dL (8.5-10.5) 12/18/21 06:01 Total Bilirubin 0.4 mg/dL (0.15-1.2) 12/18/21 06:01 AST 13 U/L (0-32) 12/18/21 06:01 ALT 15 U/L (0-33) 12/18/21 06:01 Alkaline Phosphatase 86 U/L (35-105) 12/18/21 06:01 Troponin T Baseline 9 ng/L (0-10) 12/18/21 06:01 Total Protein 6.7 g/dL (6.6-8.7) 12/18/21 06:01 Albumin 3.7 g/dL (3.5-5.2) 12/18/21 06:01 Globulin 3.0 g/dL (1.3-4.6) 12/18/21 06:01 Discharge Plan Discharge Patient Disposition: Home Clinical Impression: Anterior chest wall pain Condition: Stable Prescriptions: New prednisone 20 mg tablet 20 mg PO TID Qty: 15 0RF Rx Instructions: 1 p.o. 3 times daily x3 days, 1 p.o. twice daily x2 days, 1 p.o. daily x2 days tramadol 50 mg tablet 50 mg PO Q6H PRN (Reason: pain) Qty: 14 0RF Held prednisone 5 mg tablet 5 mg PO DAILY Qty: 90 1RF Hold Instructions: Resume on 12/25/21. Take steroid burst and taper your gait given today in the emergency room when that is complete resume your regular 5 mg/day No Action lidocaine (PF) 10 mg/mL (1 %) solution 10 mg SUBCUT ONCE Qty: 10 0RF folic acid 1 mg tablet 1 mg PO DAILY Qty: 90 3RF Enbrel 25 mg/0.5 mL solution SUBCUT carvedilol 3.125 mg tablet 3.125 mg PO BID Qty: 60 6RF Rx Instructions: must administer with a meal/food potassium chloride 20 mEq tablet extended release 20 meq PO DAILY Qty: 90 3RF Rx Instructions: Take 40mEq (2 tabs) first 2 days then take 20mEq (1 tab) daily duloxetine 30 mg capsule,delayed release(DR/EC) 30 mg PO DAILY Qty: 90 1RF Rx Instructions: a 30mg and 60mg to be taken daily to equal 90mg daily duloxetine 60 mg capsule,delayed release(DR/EC) 60 mg PO DAILY Qty: 90 1RF Rx Instructions: a 30mg and 60mg to be taken daily to equal 90mg daily pantoprazole 40 mg tablet,delayed release (DR/EC) 40 mg PO DAILY Qty: 90 1RF amlodipine 10 mg tablet 10 mg PO DAILY 90 Days Qty: 90 1RF telmisartan [Micardis] 80 mg tablet 80 mg PO DAILY 90 Days Qty: 90 1RF ondansetron HCl 4 mg tablet 4 mg PO Q6H PRN (Reason: nausea and vomiting) Qty: 90 0RF ferrous sulfate [Iron (ferrous sulfate)] 325 mg (65 mg iron) tablet 325 mg PO BID 90 Days Qty: 180 1RF Geritol Complete 16 mg iron- 0.38 mg tablet 1 tab PO .QD 90 Days Qty: 90 1RF methotrexate sodium 2.5 mg tablet See Rx Instructions PO .week Qty: 40 4RF Rx Instructions: 8 tabs of 2.5 mg PO once a week ( take 4 tabs in the AM and 4 tabs in the PM on the same day) ibuprofen 800 mg tablet See Rx Instructions .ROUTE .COMPLEX Qty: 60 1RF Dose Instruction: TAKE 1 TABLET BY MOUTH EVERY 8 HOURS NEEDED FOR PAIN Rx Instructions: TAKE 1 TABLET BY MOUTH EVERY 8 HOURS NEEDED FOR PAIN Discharge Orders: Discharge ED (Routine); Ordered 12/18/21 Ordered By: Fitz Chaves Referrals: Diamante Juarez NP [Primary Care Provider] - Patient Instructions: Opioid Safety, Pain Management Activity Restrictions/Additional Instructions: Tramadol and prednisone for pain. After the prednisone burst and taper is completed resume your usual 5 mg/day prednisone. Follow-up with your primary care doctor if not improving Coding Level of Care Code ED Physician Practice Manager for Chg Fwd Exam Detailed
[2021-12-18 05:59] VITALS: BP 181/95; PULSE 88; RESP 20; O2SAT 93; BMI 18.7
[2021-12-18 06:03] VITALS: TEMP 37.2
[2021-12-18 06:07] LABS: Basophils # 0.1 10^3/uL (0.0-0.1); Basophils % 0.3 %; Eosinophils # 0.1 10^3/uL (0.0-0.8); Eosinophils % 0.7 %; Hematocrit 41.2 % (37.0-47.0); Hemoglobin 12.6 g/dL (11.5-15.3); Lymphocytes # 2.4 10^3/uL (0.8-4.8); Lymphocytes % 12.7 %; Mean Corpuscular HGB Conc 30.6 g/dL (30.0-36.0); Mean Corpuscular Hemoglobin 27.4 pg (28.0-34.0); Mean Corpuscular Volume 89.6 fl (81-99); Mean Platelet Volume 9.5 fL (7.4-10.4); Monocytes # 1.1 10^3/uL (0.2-0.9); Neutrophils # 15.01 10^3/uL (1.8-7.7); Nucleated Red Blood Cells % 0 %; Platelet Count 311 10^3/cmm (130-400); Red Cell Distribution Width 19.1 % (12.1-15.1); White Blood Count 18.8 10^3/uL (4.0-10.0)
[2021-12-18] MEDS: aspirin 81 mg Chew Tablet 324 MG PO (06:07)
[2021-12-18] MEDS: ketorolac 30 mg/mL INJ IVP (06:25)
[2021-12-18 06:26] VITALS: RESP 16
[2021-12-18] MEDS: morphine 4 mg/mL SDV 1 mL IVP (06:26)
[2021-12-18 06:28] LABS: Alanine Aminotransferase 15 U/L (0-33); Albumin Level 3.7 g/dL (3.5-5.2); Alkaline Phosphatase 86 U/L (35-105); Anion Gap 11.4 (5-19); Aspartate Amino Transferase 13 U/L (0-32); Blood Urea Nitrogen 15 mg/dL (6-20); Carbon Dioxide 28 mmol/L (22-29); Chloride 100 mmol/L (98-107); Glomerular Filtration Rate 103.4 mL/min (90-130); Glucose 116 mg/dL (65-115); Osmolality Calculated 284 mOsm/kg (285-295); Potassium 3.4 mmol/L (3.5-5.1); Sodium 136 mmol/L (136-145); Total Bilirubin 0.4 mg/dL (0.15-1.2); Total Protein 6.7 g/dL (6.6-8.7)
[2021-12-18 06:29] LABS: Troponin(5th) Baseline 9 ng/L (0-10)
[2021-12-18 06:44] VITALS: BP 155/86; PULSE 91; RESP 16; O2SAT 92
[2021-12-18 07:51] LABS: Troponin 5 2HR 10.27 ng/L (0-10)
[2021-12-18 07:55] LABS: Troponin 5 2HR Delta 1.27 ABS# (0-10)
== END 2021-12-18 07:31 | disposition home or self-care (01) ==
PROVIDERS: Emergency Provider Family Medicine; PCP Nurse Practitioner Family
DX: R07.89 Other chest pain (principal); I10 Essential (primary) hypertension; F17.210 Nicotine dependence, cigarettes, uncomplicated
CPT/HCPCS: 36415; 71045; 80053; 84484; 85025; 93005; 96374; 96375; 99285; J1885; J2270

== ENCOUNTER → 2021-12-28 09:18 | Outpatient (BNVA) | payer MEDICARE, SELFPAY | PROVIDERS: PCP Nurse Practitioner Family; Visit Provider Nurse Practitioner Family | DX: J06.9 Acute upper respiratory infection, unspecified (principal); R07.89 Other chest pain | CPT/HCPCS: 71046; 80053 ==

== ENCOUNTER 2022-01-11 08:34 | Emergency (ER) | payer MEDICARE, SELFPAY ==
[2022-01-11] VITALS (34 sets, daily range): BP systolic 165–213; BP diastolic 88–127; PULSE 74–113; RESP 18–27; TEMP 36.4; O2SAT 97–100
--- NOTE | 2022-01-11 08:37 | XR_ITS ---
WS: [id number] Exam: XR chest 1V portable [id number] Date/Time of Exam: 01/11/2022 8:43 AM Reason For Exam: chest pain Comparison 12/28/2021. The lungs are clear and fully expanded. Chronic elevation left diaphragm. Normal cardiomediastinal si lhouette. Parenchymal scarring in the upper lobe of the right lung. Signs of previous kyphoplasty inv olving several upper thoracic vertebra as well as a single upper lumbar vertebra. Bony structures are intact. Thoracolumbar scoliosis. XR/XR chest 1V portable [id number] IMPRESSION: 1. No acute cardiopulmonary finding.
--- NOTE | 2022-01-11 08:48 | ECG_ITS ---
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 Measurements Intervals [place] Rate: 110 P: 39 [place]: 137 QRS: 1 QRSD: 74 T: 2 QT: 292 QTc: 396 Interpretive Statements SINUS TACHYCARDIA POSSIBLE LEFT ATRIAL ENLARGEMENT [-0.1mV P-WAVE IN V1/V2] LOW QRS VOLTAGE IN PRECORDIAL LEADS [QRS DEFLECTION < 1.0 mV IN CHEST LEADS] POSSIBLE ANTERIOR MYOCARDIAL INFARCTION , PROBABLY OLD [30 ms Q WAVE IN V3/V4, OR R < 0.2 mV IN V4] ABNORMAL RHYTHM ECG Compared to ECG 12/18/2021 05:56:29 Low QRS voltage now present Myocardial infarct finding now present Electronically Signed On 01-11-2022 22:55:03 CDT by Amber Gautam M.D. [id number]
[2022-01-11 08:56] LABS: Basophils % 0.3 %; Eosinophils % 0.4 %; Hematocrit 38.8 % (37.0-47.0); Hemoglobin 12.2 g/dL (11.5-15.3); Lymphocytes # 2.2 10^3/uL (0.8-4.8); Lymphocytes % 21.6 %; Mean Corpuscular HGB Conc 31.4 g/dL (30.0-36.0); Mean Corpuscular Volume 89.2 fl (81-99); Mean Platelet Volume 9.5 fL (7.4-10.4); Monocytes # 0.5 10^3/uL (0.2-0.9); Monocytes % 4.7 %; Neutrophils # 7.52 10^3/uL (1.8-7.7); Neutrophils % 72.5 %; Nucleated Red Blood Cells % 0 %; Platelet Count 352 10^3/cmm (130-400); Red Blood Count 4.35 10^6/uL (4.1-5.3); White Blood Count 10.4 10^3/uL (4.0-10.0)
[2022-01-11] MEDS: aspirin 81 mg Chew Tablet 324 MG PO (09:03)
[2022-01-11 09:15] LABS: Alanine Aminotransferase 10 U/L (0-33); Albumin Level 3.7 g/dL (3.5-5.2); Alkaline Phosphatase 112 U/L (35-105); Anion Gap 16.3 (5-19); Aspartate Amino Transferase 11 U/L (0-32); Blood Urea Nitrogen 26 mg/dL (6-20); Calcium 9.5 mg/dL (8.5-10.5); Carbon Dioxide 23 mmol/L (22-29); Chloride 104 mmol/L (98-107); Globulin 3.2 g/dL (1.3-4.6); Glomerular Filtration Rate 103.4 mL/min (90-130); Glucose 209 mg/dL (65-115); Osmolality Calculated 301 mOsm/kg (285-295); Potassium 3.3 mmol/L (3.5-5.1); Sodium 140 mmol/L (136-145); Total Bilirubin 0.2 mg/dL (0.15-1.2); Total Protein 6.9 g/dL (6.6-8.7)
[2022-01-11 09:23] LABS: Troponin(5th) Baseline 6 ng/L (0-10)
--- NOTE | 2022-01-11 09:36 | ED_ITS ---
HPI - Chest Pain General: Chief Complaint: Chest Pain Stated Complaint: Chest Pain Time Seen by Provider: 01/11/22 08:37 Source: patient Mode of arrival: ambulatory History of Present Illness: 56-year-old female who presents to the emergency room with complaint of midsternal chest pain radiates into her arm. She has a history of hypertension she has been seeing Dr. Whitley for chest pain as well she is put on no blood pressure medications a couple weeks ago. We did seen her about 3-1/2 weeks ago at that time she reported some chest pain after trying to close a fence chest x-ray initially was negative repeat chest x-ray her primary care they identified a mildly displaced sternum fracture. She denies any fever sweats or chills she has not had a productive cough. She has recently been on some antibiotics for presumed pneumonia as well. MD complaint: chest pain Onset (ago): week(s) Timing of current episode: episodic Prior episodes: Yes Onset: during rest Pain location: left chest Pain radiation: left arm Severity: moderate Quality: sharp Relieving factors: nothing Associated symptoms: Deny abdominal pain, diaphoresis, dyspnea, fever(s), leg edema, nausea, palpitations, sense of impending doom or vomiting Treatment prior to arrival: none Review of Systems Const: Denies: fever(s), chills or diaphoresis ENMT: Denies: throat pain, ear or mastoid pain, nasal discharge or nasal c ongestion Card: Reports: chest pain; Denies: palpitations, irregular heart rhythm or edema Resp: Denies: dyspnea GI: Denies: abdominal pain, nausea or vomiting : Denies: flank pain, difficulty voiding, dysuria, urinary frequency or urinary urgency Skin/Breast: Denies: rash or pruritus [facility] ED PFSH: Medical History FHx: total knee replacement 08/2011 High risk medication use History of COVID-19 HTN (hypertension) Immunization counseling Surgical History H/O wrist surgery RIGHT H/O: hysterectomy 2006 History of back surgery 12/2017 Social History Smoking and tobacco status: former smoker Alcohol intake: never Lives independently: Yes Marital status: Single Current occupational status: retired and disabled History of recent travel: No Physical Exam Const: COMMON NORMALS: no acute distress GENERAL APPEARANCE: cooperative and comfortable ORIENTATION/CONSCIOUSNESS: Yes awake, Yes oriented to person, Yes oriented to place and Yes oriented to time HENMT: COMMON NORMALS: normocephalic, atraumatic and hearing grossly normal bilaterally HEAD & SCALP: normocephalic and atraumatic Resp: COMMON NORMALS: normal respiratory effort, No retractions, No use of accessory muscles and clear to auscultation bilaterally AUSCULTATION: clear to auscultation bilaterally Cardio: COMMON NORMALS: regular rate, regular rhythm and No murmurs present (Cardio) RATE: regular rate RHYTHM: regular rhythm GI: COMMON NORMALS: Soft to palpation and No hepatosplenomegaly present AUSCULTATION: Yes normoactive bowel sounds PALPATION: Yes Soft to palpation, No Tenderness to palpation present (GI), No Guarding due to palpation present (GI) and Yes No hepatosplenomegaly present Extremity: COMMON NORMALS: normal to inspection, capillary refill normal, no clubbing, cyanosis or edema, no calf tenderness and no pedal edema Neuro: SENSORIUM/ORIENTATION: Yes oriented to person, Yes oriented to place and Yes oriented to time Skin: COMMON NORMALS: no rashes or lesions noted GENERAL SKIN EXAM: no rashes or lesions noted Course Vital Signs: Vital signs: Vital Signs Temperature 97.6 F 01/11/22 08:45 Pulse Rate 79 01/11/22 12:45 Respiratory Rate 21 H 01/11/22 12:45 Blood Pressure 182/100 01/11/22 12:45 Pulse Oximetry 98 01/11/22 12:45 Oxygen Delivery Me thod 01/11/22 08:45 MDM - Chest Pain Medical Decision Making Imaging shows pneumonitis. Previous imaging on 1009 mention possible sternal fracture,, this was not noted on the CT from today. Patient is maintaining sats well there is no pulmonary emboli patient discharged home with hydrocodone as well as Levaquin for 7 days follow-up with primary care. Medical Records I reviewed the patient's medical records. Lab Data I reviewed the patient's lab results. : 01/11/22 08:46 01/11/22 08:46 Radiology Impressions Chest X-Ray 01/11/22 08:37 IMPRESSION: 1. No acute cardiopulmonary finding. Chest CTA 01/11/22 09:38 IMPRESSION: 1. No pulmonary embolism. 2. Multilobar pulmonary opacifications, greatest in the RIGHT upper lobe consistent with pneumonitis. 3. Mild elevation LEFT hemidiaphragm. 4. No adenopathy. 5. Numerous osteoporotic compression fractures. Laboratory Results WBC 10.4 10^3/uL (4.0-10.0) H 01/11/22 08:46 RBC 4.35 10^6/uL (4.1-5.3) 01/11/22 08:46 Hgb 12.2 g/dL (11.5-15.3) 01/11/22 08:46 Hct 38.8 % (37.0-47.0) 01/11/22 08:46 MCV 89.2 fl (81-99) 01/11/22 08:46 MCH 28.0 pg (28.0-34.0) 01/11/22 08:46 MCHC 31.4 g/dL (30.0-36.0) 01/11/22 08:46 RDW 15.0 % (12.1-15.1) 01/11/22 08:46 Plt Count 352 10^3/cmm (130-400) 01/11/22 08:46 MPV 9.5 fL (7.4-10.4) 01/11/22 08:46 Neut % (Auto) 72.5 % 01/11/22 08:46 Lymph % (Auto) 21.6 % 01/11/22 08:46 [place] % (Auto) 4.7 % 01/11/22 08:46 Eos % (Auto) 0.4 % 01/11/22 08:46 Baso % (Auto) 0.3 % 01/11/22 08:46 Neut # (Auto) 7.52 10^3/uL (1.8-7.7) 01/11/22 08:46 Lymph # (Auto) 2.2 10^3/uL (0.8-4.8) 01/11/22 08:46 [place] # (Auto) 0.5 10^3/uL (0.2-0.9) 01/11/22 08:46 Eos # (Auto) 0.0 10^3/uL (0.0-0.8) 01/11/22 08:46 Baso # (Auto) 0.0 10^3/uL (0.0-0.1) 01/11/22 08:46 Nucleated RBC % (auto) 0 % 01/11/22 08:46 Nucleated RBCs # 0.0 /100WBC 01/11/22 08:46 Sodium 140 mmol/L (136-145) 01/11/22 08:46 Potassium 3.3 mmol/L (3.5-5.1) L 01/11/22 08:46 Chloride 104 mmol/L (98-107) 01/11/22 08:46 Carbon Dioxide 23 mmol/L (22-29) 01/11/22 08:46 Anion Gap 16.3 (5-19) 01/11/22 08:46 BUN 26 mg/dL (6-20) H 01/11/22 08:46 Creatinine 0.6 mg/dL (0.5-0.9) 01/11/22 08:46 GFR Calculation 103.4 mL/min (90-130) 01/11/22 08:46 Glucose 209 mg/dL (65-115) H 01/11/22 08:46 Calculated Osmolality 301 mOsm/kg (285-295) H 01/11/22 08:46 Calcium 9.5 mg/dL (8.5-10.5) 01/11/22 08:46 Total Bilirubin 0.2 mg/dL (0.15-1.2) 01/11/22 08:46 AST 11 U/L (0-32) 01/11/22 08:46 ALT 10 U/L (0-33) 01/11/22 08:46 Alkaline Phosphatase 112 U/L (35-105) H 01/11/22 08:46 Troponin T Baseline 6 ng/L (0-10) 01/11/22 08:46 Troponin T 120 Minute 8.61 ng/L (0-10) 01/11/22 10:30 Delta Troponin T 2.61 ABS# (0-10) 01/11/22 10:30 Total Protein 6.9 g/dL (6.6-8.7) 01/11/22 08:46 Albumin 3.7 g/dL (3.5-5.2) 01/11/22 08:46 Globulin 3.2 g/dL (1.3-4.6) 01/11/22 08:46 Discharge Plan Discharge Patient Disposition: Home Clinical Impression: Sternal fracture, Pneumonia Condition: Stable Prescriptions: No Action folic acid 1 mg tablet 1 mg PO DAILY Qty: 90 3RF Enbrel 25 mg/0.5 mL solution 50 mg SUBCUT Q7D Rx Instructions: ON TUESDAY carvedilol 3.125 mg tablet 3.125 mg PO BID Qty: 60 6RF Rx Instructions: must administer with a meal/food potassium chloride 20 mEq tablet extended release 20 meq PO DAILY Qty: 90 3RF duloxetine 30 mg capsule,delayed release(DR/EC) 30 mg PO DAILY Qty: 90 1RF Rx Instructions: a 30mg and 60mg to be taken daily to equal 90mg daily duloxetine 60 mg capsule,delayed release(DR/EC) 60 mg PO DAILY Qty: 90 1RF Rx Instructions: a 30mg and 60mg to be taken daily to equal 90mg daily pantoprazole 40 mg tablet,delayed release (DR/EC) 40 mg PO DAILY Qty: 90 1RF amlodipine 10 mg tablet 10 mg PO DAILY 90 Days Qty: 90 1RF telmisartan [Micardis] 80 mg tablet 80 mg PO DAILY 90 Days Qty: 90 1RF ondansetron HCl 4 mg tablet 4 mg PO Q6H PRN (Reason: nausea and vomiting) Qty: 90 0RF ferrous sulfate [Iron (ferrous sulfate)] 325 mg (65 mg iron) tablet 325 mg PO BID 90 Days Qty: 180 1RF methotrexate sodium 2.5 mg tablet See Rx Instructions PO .week Qty: 40 4RF Rx Instructions: 8 tabs of 2.5 mg PO once a week ( take 4 tabs in the AM and 4 tabs in the PM on the same day) ON TUESDAY naloxone [Narcan] 4 mg/actuation spray,non-aerosol 4 mg intranasal Q3M PRN (Reason: opioid overdose) Qty: 2 1RF Rx Instructions: spray 1 dose into ONE nostril; alternate nostrils w each dose until help arrives clonidine HCl 0.1 mg tablet 0.1 mg PO DAILY PRN (Reason: hypertensive emergency) Qty: 30 1RF Rx Instructions: take for systolic 180 and above or for dystolic 100 and above. prednisone 5 mg tablet 5 mg PO DAILY Qty: 90 1RF Hold Instructions: Resume on 12/25/21. Take steroid burst and taper your gait given today in the emergency room when that is complete resume your regular 5 mg/day hydrocodone-acetaminophen 5-325 mg tablet 1 tab PO Q6H PRN (Reason: pain) 7 Days Qty: 21 0RF ibuprofen 800 mg tablet 800 mg PO Q8H PRN (Reason: Pain) Geritol Complete 16 mg iron- 0.38 mg tablet 1 tab PO DAILY Discharge Orders: Discharge ED (Routine); Ordered 01/11/22 Ordered By: Fitz Chaves Referrals: Diamante Juarez NP [Primary Care Provider] - Discharge Diet: Usual diet Discharge Activity: Resume usual activity Patient Instructions: Opioid Safety, Pain Management Activity Restrictions/Additional Instructions: Follow-up with your primary care doctor within the week for further pain medications as needed. Coding Level of Care Code ED Section Forest Fire Warden for Zelda Fwarianne Exam Detailed
--- NOTE | 2022-01-11 09:38 | CT_ITS ---
WS: [id number] CT CHEST ANGIOGRAPHY WITH REFORMATS HISTORY: dyspnea/tachycardia/chest pain TECHNIQUE: Contiguous axial images are obtained through the chest during arterial injection of intrav enous contrast. Images are reconstructed to evaluate the pulmonary arteries. MIP imaging also reviewe d. All CT scans at [facility] use at least one of these dose optimization techniques: automat ed exposure control; mA and/or kV adjustment per patient size (includes targeted exams where dose is matched to clinical indication); or iterative reconstruction. CONTRAST: Omnipaque 350; 69 mL IV. DLP: 334.75 mGy.cm COMPARISON: 03/07/2019 Good opacification of the pulmonary arteries. No filling defects or pulmonary embolism. Normal size p ulmonary artery. Mild enlargement of the LEFT heart chambers. No RIGHT heart strain. Very mild athero sclerosis aorta. No aneurysm. Motion artifact is causing study to be suboptimal. Scattered RIGHT upper lobe irregular opacification s. There are a few scattered peripheral opacifications in the lingula and RIGHT middle lobe. No pericardial or pleural effusions. Mild elevation LEFT hemidiaphragm resulting in mild atelectasis. No mediastinal or hilar adenopathy. No abnormality in the upper abdomen on this examination. Marked increase in thoracic kyphosis. Prior kyphoplasty is at T7, T8, T9 and L1. Additional osteoporotic compression fractures at T5 and T6 and T 11. CT/CT angio chest PE protcl [id number] IMPRESSION: 1. No pulmonary embolism. 2. Multilobar pulmonary opacifications, greatest in the RIGHT upper lobe consi stent with pneumonitis. 3. Mild elevation LEFT hemidiaphragm. 4. No adenopathy. 5. Numerous osteoporotic compression fractures.
[2022-01-11] MEDS: iohexol 350 mg/mL 100 mL Btl IV (10:04)
--- NOTE | 2022-01-11 10:37 | ECG_ITS ---
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 Measurements Intervals [place] Rate: 80 P: 40 [place]: 122 QRS: 12 QRSD: 82 T: 30 QT: 392 QTc: 453 Interpretive Statements SINUS RHYTHM POSSIBLE ANTERIOR MYOCARDIAL INFARCTION , OF INDETERMINATE AGE [30 ms Q WAVE IN V3/V4, OR R < 0.2 mV IN V4] Compared to ECG 01/11/2022 08:48:03 Sinus tachycardia no longer present Myocardial infarct finding still present Electronically Signed On 01-11-2022 23:07:35 CDT by Amber Gautam M.D. [email or web address] [email or web address].[email or web address]/store/[id number]
[2022-01-11 11:04] LABS: Troponin 5 2HR 8.61 ng/L (0-10)
[2022-01-11 11:07] LABS: Troponin 5 2HR Delta 2.61 ABS# (0-10)
== END 2022-01-11 13:10 | disposition home or self-care (01) ==
PROVIDERS: Emergency Provider Family Medicine; PCP Nurse Practitioner Family
DX: J18.9 Pneumonia, unspecified organism (principal); S22.20XA Unspecified fracture of sternum, initial encounter for closed fracture; I10 Essential (primary) hypertension; Z87.891 Personal history of nicotine dependence; X58.XXXA Exposure to other specified factors, initial encounter
CPT/HCPCS: 36415; 71045; 71275; 80053; 84484; 85025; 93005; 99285; Q9967

== ENCOUNTER 2022-02-23 14:49 | Outpatient (CLI) | payer MEDICARE, SELFPAY ==
--- NOTE | 2022-02-23 14:30 | CT_ITS ---
WS: [id number] EXAMINATION: CT chest w con* [id number] REASON FOR EXAM: displaced sternum fracture COMPARISON: None available. ORDER DATE: 02/23/2022 3:14 PM TOTAL EXAM DLP: 536.[address] scans at [facility] use at least one of these dose optimization techniques: automated ex posure control; mA and/or kV adjustment per patient size (includes targeted exams where dose is match ed to clinical indication); or iterative reconstruction. TECHNIQUE: Multiple axial images of the chest were obtained with 2-D imaging without the administration of contr ast. Evaluation of the mediastinum and elizabeth for adenopathy and other pathology is significantly limited by the lack of intravascular contrast. FINDINGS: Lungs and Central Bronchi: Scattered RIGHT upper lobe irregular opacifications. There are a few scattered peripheral opacifications in the lingula and RIGHT middle lobe. No pericardial or pleural effusions. Mild elevation LEFT hemidiaphragm resulting in mild atelectasis. No mediastinal or hilar adenopathy. Pleura: within normal limits. Vessels: Atherosclerotic changes in the aorta and coronary arteries with calcification. Heart: normal size. No pericardial effusion. Mediastinum and Elizabeth: within normal limits. There are 2 subcentimeter nodules in the right thyroid lobe. Upper Abdomen: (As visualized) within normal limits. Bones: Lower manubrial sternal fracture has underwent some collapse and slight posterior angulation o f the proximal portion resulting in some shortening of the fracture.Unchanged thoracic kyphosis. Prior kyphoplasty is at T7, T8, T9 and L1. Additional osteoporotic compression fractures at T5 and T6 and T11. CT/CT chest w con* [id number] IMPRESSION: RECOMMEND CLINICAL CORRELATION FOR WHETHER THIS STERNAL FRACTURE MAY BE PATHOLO GIC THERE IS NO EVIDENCE OF ANY REPARATIVE RESPONSE CURRENTLY INCIDENTAL FINDING OF 2 SMALL THYROID NODULES ON THE RIGHT
[2022-02-23] MEDS: iohexol 350 mg/mL 100 mL Btl IV (15:34)
== END 2022-02-23 14:50 | disposition home or self-care (01) ==
PROVIDERS: PCP Nurse Practitioner Family; Visit Provider Nurse Practitioner Family
DX: S22.20XA Unspecified fracture of sternum, initial encounter for closed fracture (principal); X58.XXXA Exposure to other specified factors, initial encounter
CPT/HCPCS: 71260; Q9967

== ENCOUNTER 2022-06-01 15:10 | Outpatient (CLI) | payer MEDICARE, SELFPAY ==
--- NOTE | 2022-06-01 15:42 | US_ITS ---
WS: [id number] ULTRASOUND THYROID TECHNIQUE: Ultrasound of the thyroid. CLINICAL INFORMATION: 2 SMALL THYROID NODULES COMPARISON: None. FINDINGS: Thyroid: Right and left thyroid lobes are normal in size and echotexture. Subcentimeter complex nodule in the RIGHT mid thyroid measuring 7.7 x 4.4 x 8.2 mm. A few internal ec hogenic foci. Additional adjacent tiny cyst measuring 2 mm RIGHT thyroid. A few tiny cystic lesions in the LEFT thyroid. Right thyroid lobe: 3.9 cm x 1.5 cm x 1.4 cm Left thyroid lobe: 4.0 cm x 1.1 cm x 1.4 cm. Isthmus: 0.3 mm. Cervical lymphadenopathy: None. US/US thyroid [id number] IMPRESSION: 1. Subcentimeter complex nodule in the RIGHT mid thyroid measuring 7.7 x 4.4 x 8.2 mm. Recommend 12 month follow-up. 2. A few additional incidental tiny cystic lesions bilaterally
== END 2022-06-01 15:11 | disposition home or self-care (01) ==
PROVIDERS: PCP Nurse Practitioner Family; Visit Provider Nurse Practitioner Family
DX: E04.2 Nontoxic multinodular goiter (principal)
CPT/HCPCS: 76536

== ENCOUNTER → 2022-06-14 16:46 | Outpatient (BNVA) | payer MEDICARE, SELFPAY | PROVIDERS: PCP Nurse Practitioner Family; Visit Provider Nurse Practitioner Family | DX: M20.41 Other hammer toe(s) (acquired), right foot (principal); M20.42 Other hammer toe(s) (acquired), left foot; I10 Essential (primary) hypertension; M79.7 Fibromyalgia; D64.9 Anemia, unspecified; R11.0 Nausea; R52 Pain, unspecified; R07.89 Other chest pain; E04.1 Nontoxic single thyroid nodule; K21.9 Gastro-esophageal reflux disease without esophagitis; M05.79 Rheumatoid arthritis with rheumatoid factor of multiple sites without organ or systems involvement; G57.63 Lesion of plantar nerve, bilateral lower limbs | CPT/HCPCS: 80053 ==

== ENCOUNTER → 2022-07-21 15:40 | Outpatient (BNVA) | payer MEDICARE, SELFPAY | PROVIDERS: PCP Nurse Practitioner Family; Visit Provider Nurse Practitioner Family | DX: M25.551 Pain in right hip (principal); R07.9 Chest pain, unspecified | CPT/HCPCS: 71046; 73502 ==

== ENCOUNTER → 2022-08-27 08:05 | Outpatient (BNVA) | payer MEDICARE, SELFPAY | PROVIDERS: PCP Nurse Practitioner Family; Referring Provider Nurse Practitioner Family; Visit Provider Nurse Practitioner Family | DX: S51.811A Laceration without foreign body of right forearm, initial encounter; X58.XXXA Exposure to other specified factors, initial encounter; C44.622 Squamous cell carcinoma of skin of right upper limb, including shoulder; L85.3 Xerosis cutis; D84.821 Immunodeficiency due to drugs; L57.8 Other skin changes due to chronic exposure to nonionizing radiation; L81.4 Other melanin hyperpigmentation; D22.5 Melanocytic nevi of trunk; Z71.89 Other specified counseling; L57.0 Actinic keratosis; S51.812A Laceration without foreign body of left forearm, initial encounter | CPT/HCPCS: 11102; 17000; 17003; 99204 ==

== ENCOUNTER → 2022-09-08 09:34 | Outpatient (BNVA) | payer MEDICARE, SELFPAY | PROVIDERS: PCP Nurse Practitioner Family; Visit Provider Dermatology | DX: C44.622 Squamous cell carcinoma of skin of right upper limb, including shoulder (principal) | CPT/HCPCS: 11603; 12034 ==

== ENCOUNTER → 2023-01-31 13:58 | Outpatient (BNVA) | payer MEDICARE, SELFPAY | PROVIDERS: PCP Nurse Practitioner Family; Visit Provider Internal Medicine Rheumatology | DX: Z79.899 Other long term (current) drug therapy (principal); M05.79 Rheumatoid arthritis with rheumatoid factor of multiple sites without organ or systems involvement; M81.0 Age-related osteoporosis without current pathological fracture; Z71.89 Other specified counseling; M79.7 Fibromyalgia | CPT/HCPCS: 80076; 82565; 85025; 86140; 99214 ==

== ENCOUNTER → 2023-05-16 13:08 | Outpatient (BNVA) | payer MEDICARE, SELFPAY | PROVIDERS: PCP Nurse Practitioner Family; Visit Provider Internal Medicine Rheumatology | DX: Z79.899 Other long term (current) drug therapy (principal); M05.79 Rheumatoid arthritis with rheumatoid factor of multiple sites without organ or systems involvement; M81.0 Age-related osteoporosis without current pathological fracture; Z71.89 Other specified counseling; M79.7 Fibromyalgia | CPT/HCPCS: 36415; 80076; 82565; 85025; 86140; 99214 ==

== ENCOUNTER → 2023-07-11 09:37 | Outpatient (BNVA) | payer MEDICARE, SELFPAY | PROVIDERS: PCP Nurse Practitioner Family; Visit Provider Nurse Practitioner Family | DX: I10 Essential (primary) hypertension (principal); D64.9 Anemia, unspecified; R52 Pain, unspecified; R11.0 Nausea; M79.7 Fibromyalgia; F41.9 Anxiety disorder, unspecified; G47.00 Insomnia, unspecified; E04.1 Nontoxic single thyroid nodule; G57.63 Lesion of plantar nerve, bilateral lower limbs | CPT/HCPCS: 80053; 80061; 84443; 85025 ==

== ENCOUNTER → 2023-10-03 13:46 | Outpatient (BNVA) | payer MEDICARE, SELFPAY | PROVIDERS: PCP Nurse Practitioner Family; Visit Provider Internal Medicine Rheumatology | DX: M05.79 Rheumatoid arthritis with rheumatoid factor of multiple sites without organ or systems involvement (principal); M81.0 Age-related osteoporosis without current pathological fracture; Z71.85 Encounter for immunization safety counseling; M79.7 Fibromyalgia; I10 Essential (primary) hypertension; Z79.899 Other long term (current) drug therapy; F17.210 Nicotine dependence, cigarettes, uncomplicated | CPT/HCPCS: 36415; 80076; 82565; 85025; 85651; 86140; 99215 ==

== ENCOUNTER 2023-11-09 09:56 | Oncology outpatient (recurring) (ONCR) | payer MEDICARE, SELFPAY ==
[2023-11-09 10:36] VITALS: BP 191/94
[2023-11-09] MEDS: cloNIDine 0.1 mg Tablet PO ×2 (10:36→11:25)
[2023-11-09 11:25] VITALS: BP 181/101
[2023-11-09] MEDS: sodium chloride 0.9% 250 ML 75 ML IV (12:36)
[2023-11-09] MEDS: diphenhydrAMINE 50 mg/mL SDV 1mL 25 MG IVP (12:37)
[2023-11-09] MEDS: acetaminophen 325 mg Tablet 650 MG PO (12:38)
[2023-11-09] MEDS: abatacept 500 MG in sodium chloride 0.9% (100 ml) 100 ML 200 MG IV (13:21)
[2023-11-09 14:04] VITALS: BP 186/93; PULSE 69; TEMP 36.7; O2SAT 98
--- NOTE | 2023-11-09 14:07 | PC.NURSE ---
Pt educated on staying in infusion room for 30 minutes following her infusion. Pt states she will be fine and does not want to stay for observation.
== END 2023-11-19 23:59 | disposition home or self-care (01) ==
PROVIDERS: PCP Nurse Practitioner Family; Visit Provider Internal Medicine Rheumatology
DX: M05.9 Rheumatoid arthritis with rheumatoid factor, unspecified (principal); Z79.899 Other long term (current) drug therapy; I10 Essential (primary) hypertension
CPT/HCPCS: 96365; 96375; A4222; J0129; J1200; J7050

== ENCOUNTER 2023-12-02 09:58 | Oncology outpatient (recurring) (ONCR) | payer MEDICARE, SELFPAY ==
[2023-12-02 10:43] VITALS: BP 167/82; PULSE 69; TEMP 36.5; O2SAT 97
[2023-12-02] MEDS: sodium chloride 0.9% 250 ML 75 ML IV (10:59)
[2023-12-02] MEDS: acetaminophen 325 mg Tablet 650 MG PO (11:01)
[2023-12-02] MEDS: diphenhydrAMINE 50 mg/mL SDV 1mL 25 MG IVP (11:02)
[2023-12-02] MEDS: abatacept 500 MG in sodium chloride 0.9% (100 ml) 100 ML 200 MG IV (11:29)
[2023-12-02 12:02] VITALS: BP 136/80; PULSE 76; RESP 16; TEMP 36.6; O2SAT 96
== END 2023-12-19 23:59 | disposition home or self-care (01) ==
PROVIDERS: PCP Nurse Practitioner Family; Visit Provider Internal Medicine Rheumatology
DX: M05.9 Rheumatoid arthritis with rheumatoid factor, unspecified (principal); Z79.899 Other long term (current) drug therapy
CPT/HCPCS: 96365; J0129; J1200; J7050

== ENCOUNTER 2024-01-19 12:01 | Oncology outpatient (recurring) (ONCR) | payer MEDICARE, SELFPAY ==
[2023-12-22 12:27] VITALS: BP 191/83; PULSE 83; RESP 17; TEMP 37; O2SAT 99
--- NOTE | 2023-12-22 12:29 | PC.NURSE ---
patient reports hypertension, medication has been taken today.
[2023-12-22] MEDS: acetaminophen 325 mg Tablet 650 MG PO (12:47)
[2023-12-22] MEDS: sodium chloride 0.9% 250 ML 75 ML IV (12:47)
[2023-12-22] MEDS: diphenhydrAMINE 50 mg/mL SDV 1mL 25 MG IVP (12:47)
[2023-12-22 12:51] VITALS: BP 177/90
[2023-12-22] MEDS: abatacept 500 MG in sodium chloride 0.9% (100 ml) 100 ML 200 MG IV (13:24)
[2023-12-22 13:55] VITALS: BP 148/88; PULSE 57; RESP 16; TEMP 36.9; O2SAT 97
[2024-01-19 12:22] VITALS: BP 150/85; PULSE 72; TEMP 37.1; O2SAT 97
[2024-01-19] MEDS: sodium chloride 0.9% 250 ML 75 ML IV (12:35)
[2024-01-19] MEDS: acetaminophen 325 mg Tablet 650 MG PO (12:38)
[2024-01-19] MEDS: diphenhydrAMINE 50 mg/mL SDV 1mL 25 MG IVP (12:40)
[2024-01-19] MEDS: abatacept 500 MG in sodium chloride 0.9% (100 ml) 100 ML 200 MG IV (13:11)
[2024-01-19 13:43] VITALS: BP 135/71; PULSE 67; RESP 17; TEMP 36.8; O2SAT 96
== END 2024-01-19 23:59 | disposition home or self-care (01) ==
PROVIDERS: PCP Nurse Practitioner Family; Visit Provider Internal Medicine Rheumatology
DX: Z79.899 Other long term (current) drug therapy; Z53.9 Procedure and treatment not carried out, unspecified reason; M05.89 Other rheumatoid arthritis with rheumatoid factor of multiple sites
CPT/HCPCS: 96365; A4222; J0129; J1200; J7050

== ENCOUNTER 2024-03-28 12:55 | Oncology outpatient (recurring) (ONCR) | payer MEDICARE, SELFPAY ==
[2024-03-28 13:10] VITALS: BP 188/97; PULSE 81; RESP 16; TEMP 36.7; O2SAT 99
[2024-03-28] MEDS: diphenhydrAMINE 50 mg/mL SDV 1mL 25 MG IVP (13:42)
[2024-03-28] MEDS: acetaminophen 325 mg Tablet 650 MG PO (13:42)
[2024-03-28 13:59] LABS: Basophils # 0.1 10^3/uL (0.0-0.1); Basophils % 0.5 %; Eosinophils # 0.3 10^3/uL (0.0-0.8); Eosinophils % 2.6 %; Hematocrit 42.6 % (36-47); Lymphocytes # 2.3 10^3/uL (0.8-4.8); Lymphocytes % 22.1 %; Mean Corpuscular HGB Conc 31.9 g/dL (30-55); Mean Corpuscular Hemoglobin 29.9 pg (27-33); Mean Corpuscular Volume 93.6 fl (85-98); Mean Platelet Volume 10.4 fL (7.4-10.4); Monocytes # 0.8 10^3/uL (0.2-0.9); Monocytes % 7.6 %; Neutrophils # 6.92 10^3/uL (1.8-7.7); Neutrophils % 66.9 %; Nucleated Red Blood Cells % 0 %; Platelet Count 270 10^3/cmm (157-399); Red Blood Count 4.55 10^6/uL (3.85-5.65); Red Cell Distribution Width 13.1 % (12.1-15.1); White Blood Count 10.35 10^3/uL (3.29-11.43)
[2024-03-28 14:06] LABS: Erythrocyte Sedimentation Rate 15 mm/hr (0-15)
[2024-03-28] MEDS: abatacept 500 MG in sodium chloride 0.9% (100 ml) 100 ML 200 MG IV (14:10)
[2024-03-28 14:20] LABS: Alanine Aminotransferase 10 U/L (0-33); Albumin Level 3.7 g/dL (3.5-5.2); Alkaline Phosphatase 93 U/L (35-105); Aspartate Amino Transferase 12 U/L (0-32); Globulin 2.7 g/dL (1.3-4.6); Total Bilirubin 0.2 mg/dL (0.15-1.2); Total Protein 6.4 g/dL (6.6-8.7)
[2024-03-28 14:21] LABS: C Reactive Protein 11.5 mg/L (0.0-4.9); Creatinine Clr Calc Pharmacy 87.7878; Glomerular Filtration Rate 102.7 mL/min (90-130)
[2024-03-28 15:01] VITALS: BP 132/75; PULSE 85; RESP 15; TEMP 36.9; O2SAT 95
== END 2024-04-20 23:59 | disposition home or self-care (01) ==
PROVIDERS: PCP Nurse Practitioner Family; Visit Provider Internal Medicine Rheumatology
DX: M05.79 Rheumatoid arthritis with rheumatoid factor of multiple sites without organ or systems involvement (principal); Z79.899 Other long term (current) drug therapy
CPT/HCPCS: 80076; 82565; 85025; 85651; 86140; 96365; 96375; A4222; J0129; J1200

== ENCOUNTER 2024-04-25 12:53 | Oncology outpatient (recurring) (ONCR) | payer MEDICARE, SELFPAY ==
[2024-04-25] MEDS: diphenhydrAMINE 50 mg/mL SDV 1mL 25 MG IVP (13:59)
[2024-04-25] MEDS: acetaminophen 325 mg Tablet 650 MG PO (13:59)
[2024-04-25] MEDS: abatacept 500 MG in sodium chloride 0.9% (100 ml) 100 ML 200 MG IV (14:19)
[2024-04-25 15:01] VITALS: BP 144/73; PULSE 68; RESP 17; TEMP 37.2; O2SAT 95
== END 2024-05-18 23:59 | disposition home or self-care (01) ==
PROVIDERS: Visit Provider Internal Medicine Rheumatology
DX: M05.79 Rheumatoid arthritis with rheumatoid factor of multiple sites without organ or systems involvement (principal); Z79.899 Other long term (current) drug therapy
CPT/HCPCS: 96365; J0129; J1200

== ENCOUNTER 2024-05-23 12:25 | Oncology outpatient (recurring) (ONCR) | payer MEDICARE, SELFPAY ==
[2024-05-23 12:35] VITALS: BP 159/92; PULSE 79; TEMP 36.8; O2SAT 97
[2024-05-23] MEDS: sodium chloride 0.9% 250 ML 75 ML IV (13:29)
[2024-05-23] MEDS: acetaminophen 325 mg Tablet 650 MG PO (13:30)
[2024-05-23] MEDS: diphenhydrAMINE 50 mg/mL SDV 1mL 25 MG IVP (13:31)
[2024-05-23] MEDS: abatacept 500 MG in sodium chloride 0.9% (100 ml) 100 ML 200 MG IV (14:03)
[2024-05-23 14:39] VITALS: BP 176/96; PULSE 77; RESP 18; TEMP 36.9; O2SAT 96
== END 2024-06-18 23:59 | disposition home or self-care (01) ==
PROVIDERS: Visit Provider Internal Medicine Rheumatology
DX: M05.79 Rheumatoid arthritis with rheumatoid factor of multiple sites without organ or systems involvement (principal); Z79.899 Other long term (current) drug therapy
CPT/HCPCS: 96365; 96375; A4222; J0129; J1200; J7050; J9999

== ENCOUNTER → 2024-07-17 14:29 | Outpatient (BNVA) | payer MEDICARE, SELFPAY | PROVIDERS: PCP Nurse Practitioner Family; Visit Provider Nurse Practitioner Family | DX: I10 Essential (primary) hypertension (principal) | CPT/HCPCS: 80053; 80061; 83550; 84439; 84443; 85025 ==

== ENCOUNTER 2024-07-24 13:53 | Oncology outpatient (recurring) (ONCR) | payer MEDICARE, SELFPAY ==
[2024-07-24] MEDS: sodium chloride 0.9% 250 ML 75 ML IV (14:30)
[2024-07-24] MEDS: acetaminophen 325 mg Tablet 650 MG PO (14:30)
[2024-07-24] MEDS: diphenhydrAMINE 50 mg/mL SDV 1mL 25 MG IVP (14:31)
[2024-07-24] MEDS: abatacept 500 MG in sodium chloride 0.9% (100 ml) 100 ML 200 MG IV (15:17)
[2024-07-24 16:01] VITALS: BP 144/76; PULSE 80; RESP 17; TEMP 36.2; O2SAT 97
== END 2024-08-18 23:59 | disposition home or self-care (01) ==
PROVIDERS: PCP Nurse Practitioner Family; Visit Provider Internal Medicine Rheumatology
DX: M05.79 Rheumatoid arthritis with rheumatoid factor of multiple sites without organ or systems involvement (principal); Z79.899 Other long term (current) drug therapy
CPT/HCPCS: 96365; 96375; A4222; J0129; J1200; J7050; J9999

== ENCOUNTER 2024-08-08 14:17 | Outpatient (CLI) | payer MEDICARE, SELFPAY ==
--- NOTE | 2024-08-08 14:20 | MM_ITS ---
WS: [id number] BILATERAL 3D TOMOSYNTHESIS DIGITAL SCREENING MAMMOGRAPHY WITH CAD CLINICAL INFORMATION: Z12.39 - Encounter for other screening for malignant neop... HISTORY: Screening mammogram. No current complaints. COMPARISON: 2011 TECHNIQUE: Bilateral CC and MLO views. FINDINGS: The breasts are composed of heterogeneous fibroglandular density tissue, which can limit the detection of small underlying mass lesions. No suspicious mass, asymmetry, calcifications, or architectural distortion. No evidence of malignancy. A few incidental punctate calcifications. Diffuse tiny calcific ations LEFT greater than RIGHT breast similar to previous MM/MM [facility] tomosynthesis [id number] IMPRESSION: DENSITY: The breasts are heterogeneously dense, which may obscure small masses. BI-RADS: 2 - Benign FOLLOW UP: 1 Year Follow-up Recommend return to annual screening mammography.
== END 2024-08-08 14:18 | disposition home or self-care (01) ==
LOC: MOBLMAM 14:20
PROVIDERS: PCP Nurse Practitioner Family; Visit Provider Nurse Practitioner Family
DX: Z12.31 Encounter for screening mammogram for malignant neoplasm of breast (principal); R92.333 Mammographic heterogeneous density, bilateral breasts; R92.1 Mammographic calcification found on diagnostic imaging of breast
CPT/HCPCS: 77063; 77067

== ENCOUNTER → 2024-08-30 11:16 | Outpatient (BNVA) | payer MEDICARE, SELFPAY | PROVIDERS: PCP Nurse Practitioner Family; Visit Provider Internal Medicine Rheumatology | DX: M05.79 Rheumatoid arthritis with rheumatoid factor of multiple sites without organ or systems involvement (principal); M81.0 Age-related osteoporosis without current pathological fracture; Z79.899 Other long term (current) drug therapy; Z71.89 Other specified counseling; M06.9 Rheumatoid arthritis, unspecified; M79.7 Fibromyalgia | CPT/HCPCS: 36415; 86480; 99214 ==

== ENCOUNTER 2024-12-31 11:18 | Oncology outpatient (recurring) (ONCR) | payer MEDICARE, SELFPAY ==
[2024-12-31 13:29] VITALS: BP 186/97
[2024-12-31] MEDS: diphenhydrAMINE 50 mg/mL SDV 1mL 25 MG IVP (13:34)
[2024-12-31] MEDS: abatacept 500 MG in sodium chloride 0.9% (100 ml) 100 ML 200 MG IV (13:58)
[2024-12-31 14:40] VITALS: BP 183/90; PULSE 64; RESP 16; TEMP 36.7; O2SAT 99
== END 2025-01-18 23:59 | disposition home or self-care (01) ==
PROVIDERS: PCP Nurse Practitioner Family; Visit Provider Radiology Radiation Oncology
DX: M05.79 Rheumatoid arthritis with rheumatoid factor of multiple sites without organ or systems involvement (principal); Z79.899 Other long term (current) drug therapy
CPT/HCPCS: 96365; 96375; A4222; J0129; J1200; J9999

== ENCOUNTER 2025-02-06 11:49 | Oncology outpatient (recurring) (ONCR) | payer MEDICARE, SELFPAY ==
[2025-02-06 12:33] LABS: Hematocrit 43.5 % (36-47); Hemoglobin 13.60 g/dL (11.27-16.99); Mean Corpuscular HGB Conc 31.3 g/dL (30-55); Mean Corpuscular Hemoglobin 28.5 pg (27-33); Mean Corpuscular Volume 91.0 fl (85-98); Nucleated Red Blood Cells % 0 %; Platelet Count 294 10^3/cmm (157-399); Red Blood Count 4.78 10^6/uL (3.85-5.65); White Blood Count 10.36 10^3/uL (3.29-11.43)
[2025-02-06] MEDS: abatacept 500 MG in sodium chloride 0.9% (100 ml) 100 ML 200 MG IV (12:47)
[2025-02-06 12:54] LABS: Alanine Aminotransferase 10 U/L (0-33); Albumin Level 3.7 g/dL (3.5-5.2); Alkaline Phosphatase 76 U/L (35-105); Aspartate Amino Transferase 15 U/L (0-32); Globulin 2.6 g/dL (1.3-4.6); Total Protein 6.3 g/dL (6.6-8.7)
[2025-02-06 13:28] VITALS: BP 163/92; PULSE 70; RESP 17; TEMP 36.8; O2SAT 97
== END 2025-02-17 23:59 | disposition home or self-care (01) ==
PROVIDERS: Internal Medicine Rheumatology; PCP Nurse Practitioner Family; Visit Provider Radiology Radiation Oncology
DX: M05.79 Rheumatoid arthritis with rheumatoid factor of multiple sites without organ or systems involvement (principal); Z79.899 Other long term (current) drug therapy
CPT/HCPCS: 80076; 82565; 85025; 85651; 86140; 96365; A4222; J0129; J9999